=== PATIENT | male | born 1955 | race African-American/Black ===

== ENCOUNTER 2018-11-17 11:29 | Inpatient (IN) ==
[2018-11-17] MEDS ORDERED: cloNIDine 0.1 MG TABLET PO STA (13:12)
[2018-11-17] MEDS ORDERED: hydrALAZINE 20 MG/1 ML VIAL IV PRN (13:35)
[2018-11-17] MEDS ORDERED: DEXTROSE 50% 25 GM/50 ML SYRINGE IV PRN (16:01)
[2018-11-17] MEDS ORDERED: ONDANSETRON 4 MG/2 ML VIAL IV PRN (16:01)
[2018-11-17] MEDS ORDERED: hydroCHLOROthiazide 12.5 MG CAPSULE PO SCH (16:01)
[2018-11-17] MEDS ORDERED: GLUCAGON 1 MG VIAL IM PRN (16:01)
[2018-11-17] MEDS ORDERED: amLODIPine 10 MG TABLET PO SCH (16:01)
[2018-11-17] MEDS: BETAMETHASONE DIPR 0.05% CREAM 15 GM TUBE TOP SCH ×2 (16:16→20:54)
[2018-11-17] MEDS: CARVEDILOL 6.25 MG TABLET PO SCH ×2 (16:16→20:54)
[2018-11-17] MEDS: MOMETASONE 0.1% CREAM 15 GM TUBE TOP SCH ×2 (16:17→22:00)
[2018-11-17] MEDS: NICOTINE 14 MG/24 HR PATCH TRANSDERM SCH (16:17)
[2018-11-17] MEDS: TRIAMCINOLONE 0.1% CREAM 15 GM TUBE TOP SCH ×2 (16:17→20:54)
[2018-11-17] MEDS: PANTOPRAZOLE 40 MG TABLET PO SCH (16:18)
[2018-11-17] MEDS ORDERED: ZALEPLON 5 MG CAPSULE PO PRN ×2 (16:21→16:29)
[2018-11-17] MEDS: INSULIN REGULAR 100 UNIT/ML SUBCUT SCH ×2 (17:30→20:51)
[2018-11-17 18:30] LABS: Basophils # 0.1 10*3/uL (0.0-0.2); Basophils % 0.8 % (0.0-0.8); Eosinophils # 0.1 10*3/uL (0.0-0.87); Eosinophils % 0.5 % (0.00-10.9); Hematocrit 42.9 VOL% (42.0-52.0); Hemoglobin 14.1 GM/DL (14.0-18.0); Immature Granulocytes % 0.4 %; Immature Granulocytes Absolute 0.05 #; Lymphocytes # 2.6 10*3/uL (1.4-4.0); Lymphocytes % 20.3 % (21.2-54.2); Mean Corpuscular HGB Conc 32.9 GM/DL (32-36); Mean Corpuscular Hemoglobin 27 PG (27-34); Mean Corpuscular Volume 83.3 FL (87-102); Mean Platelet Volume 10.4 FL (9.6-12.0); Monocytes # 0.9 10*3/uL (0.11-0.8); Monocytes % 6.7 % (1.7-12.7); Neutrophils % 71.3 % (38.7-73.9); Platelet Count 318 T/CUMM (130-400); Red Blood Count 5.15 MC/CUMM (3.8-5.5); Red Cell Distribution Width 14.2 % (9.3-17.3); White Blood Count 12.6 T/CUMM (4-12)
[2018-11-17 18:48] LABS: Albumin 3.6 G/DL (3.4-5.0); Bilirubin,Total 0.6 MG/DL (0.2-1.0); Calcium 9.1 MG/DL (8.5-10.1); Osmolality,Calculated 281.3 MOS/KG (273-304); Potassium 3.2 MMOL/L (3.5-5.1); Total Protein 8.6 G/DL (6.4-8.3)
[2018-11-17] MEDS ORDERED: LOSARTAN 50 MG TABLET PO SCH ×2 (21:00)
[2018-11-17] MEDS ORDERED: cloNIDine 0.1 MG TABLET PO ONE (23:16)
[2018-11-17] MEDS ORDERED: LISINOPRIL 20 MG TABLET PO SCH (23:16)
[2018-11-18] MEDS ORDERED: METOPROLOL TARTRATE 5 MG/5 ML VIAL IV ONE (03:42)
[2018-11-18 05:08] LABS: Basophils # 0.1 10*3/uL (0.0-0.2); Basophils % 0.8 % (0.0-0.8); Eosinophils # 0.1 10*3/uL (0.0-0.87); Eosinophils % 0.9 % (0.00-10.9); Hematocrit 42.6 VOL% (42.0-52.0); Hemoglobin 14.1 GM/DL (14.0-18.0); Immature Granulocytes % 0.6 %; Immature Granulocytes Absolute 0.07 #; Lymphocytes # 2.5 10*3/uL (1.4-4.0); Lymphocytes % 20.6 % (21.2-54.2); Mean Corpuscular HGB Conc 33.1 GM/DL (32-36); Mean Corpuscular Hemoglobin 28 PG (27-34); Mean Platelet Volume 10.5 FL (9.6-12.0); Monocytes % 8.2 % (1.7-12.7); Neutrophils # 8.4 10*3/uL (1.4-7.4); Neutrophils % 68.9 % (38.7-73.9); Platelet Count 312 T/CUMM (130-400); Red Blood Count 5.13 MC/CUMM (3.8-5.5); Red Cell Distribution Width 14.1 % (9.3-17.3); White Blood Count 12.1 T/CUMM (4-12)
[2018-11-18 05:37] LABS: Risk Ratio 5.61; VLDL CHOLESTEROL 16.2 MG/DL
[2018-11-18] MEDS ORDERED: CARVEDILOL 12.5 MG TABLET PO ONE (06:36)
[2018-11-18] MEDS ORDERED: ALPRAZolam 0.25 MG TABLET PO ONE (08:39)
[2018-11-18] MEDS ORDERED: POTASSIUM CHLORIDE 20 MEQ TABLET PO ONE (08:44)
[2018-11-18] MEDS ORDERED: amLODIPine 10 MG TABLET PO SCH ×2 (09:00→13:45)
[2018-11-18] MEDS ORDERED: hydroCHLOROthiazide 25 MG TABLET PO SCH (09:00)
[2018-11-18] MEDS ORDERED: LOSARTAN 50 MG TABLET PO SCH (09:00)
[2018-11-18] MEDS: INSULIN REGULAR 100 UNIT/ML SUBCUT SCH ×4 (09:04→20:25)
[2018-11-18 09:23] LABS: Calcium 8.9 MG/DL (8.5-10.1); Osmolality,Calculated 284.1 MOS/KG (273-304); Potassium 3.1 MMOL/L (3.5-5.1)
[2018-11-18] MEDS: PANTOPRAZOLE 40 MG TABLET PO SCH (09:32)
[2018-11-18] MEDS ORDERED: cloNIDine 0.1 MG TABLET ONE (09:54)
[2018-11-18] MEDS ORDERED: fentaNYL 100 MCG/2 ML VIAL ONE (12:16)
[2018-11-18] MEDS ORDERED: PROPOFOL 200 MG/20 ML VIAL IV ONE (12:16)
[2018-11-18] MEDS ORDERED: SEVOFLURANE 1 UNIT/15 MINUTE INH ONE (12:16)
[2018-11-18] MEDS ORDERED: ROCURONIUM 100 MG/10 ML VIAL IV ONE (12:17)
[2018-11-18] MEDS ORDERED: ONDANSETRON 4 MG/2 ML VIAL ONE (12:17)
[2018-11-18] MEDS ORDERED: PHENYLEPHRINE 10 MG/1 ML VIAL IV ONE (12:17)
[2018-11-18] MEDS ORDERED: PHENYLEPHRINE 1 MG/10 ML SYRINGE IV ONE (12:17)
[2018-11-18] MEDS ORDERED: SUCCINYLCHOLINE 200 MG/10 ML VIAL ONE (12:17)
[2018-11-18] MEDS ORDERED: EPINEPHrine 1 MG/ML VIAL ONE (12:17)
[2018-11-18 12:42] LABS: ABG Base Excess -3.9 MMOL/L (-2.5-2.5); ABG HCO3 21.2 MMOL/L (20-26); ABG Oxygen Saturation 96.2 % (95-100)
[2018-11-18 12:45] LABS: ABG PH 7.164 (7.35-7.45)
[2018-11-18 12:46] LABS: ABG PCO2 77.2 MM HG (35-48)
[2018-11-18] MEDS ORDERED: HEPARIN/NACL 0.9% 2 UNITS/ML 500 ML IV ONE (13:05)
[2018-11-18 13:11] LABS: ABG Base Excess -2.2 MMOL/L (-2.5-2.5); ABG HCO3 22.6 MMOL/L (20-26); ABG Oxygen Saturation 96.6 % (95-100); ABG PCO2 57.6 MM HG (35-48); ABG PH 7.268 (7.35-7.45)
[2018-11-18] MEDS ORDERED: FUROSEMIDE 20 MG/2 ML VIAL IV ONE ×3 (13:21→16:51)
[2018-11-18] MEDS: PROPOFOL 1,000 MG/100 ML BOTTLE IV SCH ×2 (13:32→15:15)
[2018-11-18 13:49] LABS: Basophils # 0.1 10*3/uL (0.0-0.2); Basophils % 0.4 % (0.0-0.8); Eosinophils # 0.1 10*3/uL (0.0-0.87); Eosinophils % 0.2 % (0.00-10.9); Hematocrit 41.4 VOL% (42.0-52.0); Hemoglobin 13.6 GM/DL (14.0-18.0); Immature Granulocytes % 0.7 %; Immature Granulocytes Absolute 0.16 #; Lymphocytes # 0.8 10*3/uL (1.4-4.0); Lymphocytes % 3.7 % (21.2-54.2); Mean Corpuscular HGB Conc 32.9 GM/DL (32-36); Mean Corpuscular Hemoglobin 28 PG (27-34); Mean Corpuscular Volume 84.5 FL (87-102); Mean Platelet Volume 10.4 FL (9.6-12.0); Monocytes # 0.3 10*3/uL (0.11-0.8); Monocytes % 1.5 % (1.7-12.7); Neutrophils # 19.9 10*3/uL (1.4-7.4); Neutrophils % 93.5 % (38.7-73.9); Platelet Count 299 T/CUMM (130-400); Red Cell Distribution Width 14.3 % (9.3-17.3); White Blood Count 21.3 T/CUMM (4-12)
[2018-11-18 14:03] LABS: Calcium 8.2 MG/DL (8.5-10.1); Osmolality,Calculated 289.1 MOS/KG (273-304); Potassium 3.6 MMOL/L (3.5-5.1)
[2018-11-18 14:05] LABS: INR 1.1; PT Patient Result 11.4 SECS; Partial Thromboplastin Time 30.6 SECS (0-40)
[2018-11-18 15:17] LABS: Band Neutrophils 1 % (0-10); Hypochromasia Slight; Lymphocytes 3 % (20-55); Platelet Estimate Normal; Segmented Neutrophils 96 % (50-85)
[2018-11-18 15:18] LABS: Microcytosis Slight; Total Cells Counted 100
[2018-11-18] MEDS ORDERED: OXYMETAZOLINE 0.05% NASAL SPRAY 15 ML BOTTLE BOTH NARES PRN (15:47)
[2018-11-18] MEDS: LEVOFLOXACIN INJ 750 MG in PREMIX 1 EACH IV SCH (15:55)
[2018-11-18] MEDS: PANTOPRAZOLE 40 MG VIAL IV SCH (15:55)
[2018-11-18] MEDS: CLINDAMYCIN INJ 600 MG in PREMIX 1 EACH IV SCH (16:59)
[2018-11-18] MEDS ORDERED: SODIUM CHLORIDE 0.45% 1,000 ML IV SCH (17:30)
[2018-11-18] MEDS: BETAMETHASONE DIPR 0.05% CREAM 15 GM TUBE TOP SCH ×2 (17:34→21:41)
[2018-11-18] MEDS: TRIAMCINOLONE 0.1% CREAM 15 GM TUBE TOP SCH ×2 (17:35→21:42)
[2018-11-18] MEDS: MOMETASONE 0.1% CREAM 15 GM TUBE TOP SCH ×2 (17:35→21:42)
[2018-11-18] MEDS: NICOTINE 14 MG/24 HR PATCH TRANSDERM SCH (17:35)
[2018-11-18] MEDS: SODIUM CHLORIDE 0.9% 1,000 ML IV SCH ×2 (17:38→20:21)
[2018-11-18 18:03] LABS: ABG Base Excess -0.8 MMOL/L (-2.5-2.5); ABG HCO3 23.7 MMOL/L (20-26); ABG Oxygen Saturation 98.7 % (95-100); ABG PCO2 42.5 MM HG (35-48); ABG TCO2 21.4 MMOL/L (23-27)
[2018-11-18] MEDS ORDERED: SODIUM CHLORIDE 0.9% 500 ML IV ONE ×2 (18:11→18:18)
[2018-11-18] MEDS ORDERED: NOREPINEPHRINE 8 MG in SODIUM CHLORIDE 0.9% 242 ML IV PRN (18:19)
[2018-11-18] MEDS: SODIUM CHLORIDE 0.65% NASAL SPRAY 45 ML BOTTLE BOTH NARES SCH ×2 (18:40→21:42)
[2018-11-18] MEDS: fentaNYL INJ 1,250 MCG in SODIUM CHLORIDE 0.9% 225 ML IV PRN (18:45)
[2018-11-18 20:11] LABS: Basophils # 0.1 10*3/uL (0.0-0.2); Basophils % 0.2 % (0.0-0.8); Hematocrit 39.2 VOL% (42.0-52.0); Hemoglobin 12.8 GM/DL (14.0-18.0); Immature Granulocytes % 0.7 %; Immature Granulocytes Absolute 0.18 #; Lymphocytes # 1.1 10*3/uL (1.4-4.0); Lymphocytes % 4.2 % (21.2-54.2); Mean Corpuscular HGB Conc 32.7 GM/DL (32-36); Mean Corpuscular Hemoglobin 28 PG (27-34); Mean Corpuscular Volume 84.7 FL (87-102); Mean Platelet Volume 10.2 FL (9.6-12.0); Monocytes # 0.8 10*3/uL (0.11-0.8); Monocytes % 3.3 % (1.7-12.7); Neutrophils % 91.6 % (38.7-73.9); Platelet Count 284 T/CUMM (130-400); Red Blood Count 4.63 MC/CUMM (3.8-5.5); Red Cell Distribution Width 14.4 % (9.3-17.3); White Blood Count 25.1 T/CUMM (4-12)
[2018-11-18] MEDS: ALBUTEROL/IPRATROPIUM 3 ML NEB RESP TX SCH ×2 (20:15→23:11)
[2018-11-18 20:25] LABS: Osmolality,Calculated 286.3 MOS/KG (273-304); Potassium 3.6 MMOL/L (3.5-5.1)
[2018-11-18 20:34] LABS: Microcytosis 1+; Platelet Estimate Normal
[2018-11-18] MEDS ORDERED: CARVEDILOL 6.25 MG TABLET PO SCH (21:00)
[2018-11-18] MEDS ORDERED: CARVEDILOL 12.5 MG TABLET PO SCH (21:00)
[2018-11-19] MEDS: CLINDAMYCIN INJ 600 MG in PREMIX 1 EACH IV SCH ×3 (00:57→16:59)
[2018-11-19] MEDS: fentaNYL INJ 1,250 MCG in SODIUM CHLORIDE 0.9% 225 ML IV PRN ×5 (01:08→20:24)
[2018-11-19] MEDS: ALBUTEROL/IPRATROPIUM 3 ML NEB RESP TX SCH ×5 (03:15→20:07)
[2018-11-19 03:46] LABS: Basophils % 0.2 % (0.0-0.8); Hematocrit 37.1 VOL% (42.0-52.0); Hemoglobin 12.1 GM/DL (14.0-18.0); Immature Granulocytes % 0.7 %; Immature Granulocytes Absolute 0.16 #; Lymphocytes # 1.7 10*3/uL (1.4-4.0); Lymphocytes % 7.4 % (21.2-54.2); Mean Corpuscular HGB Conc 32.6 GM/DL (32-36); Mean Corpuscular Hemoglobin 28 PG (27-34); Mean Corpuscular Volume 84.7 FL (87-102); Monocytes # 1.3 10*3/uL (0.11-0.8); Monocytes % 5.6 % (1.7-12.7); Neutrophils # 19.4 10*3/uL (1.4-7.4); Neutrophils % 86.1 % (38.7-73.9); Platelet Count 276 T/CUMM (130-400); Red Blood Count 4.38 MC/CUMM (3.8-5.5); Red Cell Distribution Width 14.2 % (9.3-17.3); White Blood Count 22.5 T/CUMM (4-12)
[2018-11-19 03:54] LABS: ABG Base Excess -0.3 MMOL/L (-2.5-2.5); ABG HCO3 24.4 MMOL/L (20-26); ABG Oxygen Saturation 96.2 % (95-100); ABG PCO2 40.3 MM HG (35-48); ABG PO2 91.4 MM HG (80-95); ABG TCO2 25.6 MMOL/L (23-27)
[2018-11-19 04:33] LABS: Lymphocytes 11 % (20-55); Platelet Estimate Normal; Segmented Neutrophils 86 % (50-85); Total Cells Counted 100
[2018-11-19 04:34] LABS: Polychromasia Few
[2018-11-19] MEDS: SODIUM CHLORIDE 0.9% 1,000 ML IV SCH ×3 (05:21→17:52)
[2018-11-19 06:05] LABS: Calcium 7.7 MG/DL (8.5-10.1); Osmolality,Calculated 293.8 MOS/KG (273-304); Potassium 3.4 MMOL/L (3.5-5.1)
[2018-11-19] MEDS: INSULIN REGULAR 100 UNIT/ML SUBCUT SCH ×4 (07:38→21:57)
[2018-11-19] MEDS: NICOTINE 14 MG/24 HR PATCH TRANSDERM SCH (08:41)
[2018-11-19] MEDS: PANTOPRAZOLE 40 MG VIAL IV SCH (08:41)
[2018-11-19] MEDS: BETAMETHASONE DIPR 0.05% CREAM 15 GM TUBE TOP SCH ×2 (11:21→22:11)
[2018-11-19] MEDS: TRIAMCINOLONE 0.1% CREAM 15 GM TUBE TOP SCH ×2 (11:21→22:12)
[2018-11-19] MEDS: MOMETASONE 0.1% CREAM 15 GM TUBE TOP SCH ×2 (11:21→22:11)
[2018-11-19] MEDS: SODIUM CHLORIDE 0.65% NASAL SPRAY 45 ML BOTTLE BOTH NARES SCH ×4 (11:26→20:27)
[2018-11-19] MEDS: PROPOFOL 1,000 MG/100 ML BOTTLE IV SCH ×2 (12:48→20:27)
[2018-11-19] MEDS: LEVOFLOXACIN INJ 750 MG in PREMIX 1 EACH IV SCH (15:08)
[2018-11-19] MEDS ORDERED: NITROGLYCERIN SL 0.4 MG TABLET SL ONE (17:19)
[2018-11-19] MEDS ORDERED: NITROGLYCERIN SL 0.4 MG TABLET SL PRN (17:22)
[2018-11-19 17:56] LABS: Albumin 3.4 G/DL (3.4-5.0); Bilirubin,Total 0.8 MG/DL (0.2-1.0); Calcium 7.9 MG/DL (8.5-10.1); Osmolality,Calculated 297.6 MOS/KG (273-304); Potassium 3.6 MMOL/L (3.5-5.1); Total Protein 7.4 G/DL (6.4-8.3)
[2018-11-20] MEDS: CLINDAMYCIN INJ 600 MG in PREMIX 1 EACH IV SCH ×3 (00:11→16:54)
[2018-11-20] MEDS: SODIUM CHLORIDE 0.9% 1,000 ML IV SCH ×4 (00:15→21:05)
[2018-11-20] MEDS: fentaNYL INJ 1,250 MCG in SODIUM CHLORIDE 0.9% 225 ML IV PRN ×5 (00:21→19:14)
[2018-11-20] MEDS: ALBUTEROL/IPRATROPIUM 3 ML NEB RESP TX SCH ×7 (00:26→23:45)
[2018-11-20 03:00] LABS: Basophils # 0.1 10*3/uL (0.0-0.2); Basophils % 0.6 % (0.0-0.8); Eosinophils % 0.1 % (0.00-10.9); Hematocrit 36.9 VOL% (42.0-52.0); Hemoglobin 12.1 GM/DL (14.0-18.0); Immature Granulocytes % 0.7 %; Immature Granulocytes Absolute 0.12 #; Lymphocytes # 1.9 10*3/uL (1.4-4.0); Lymphocytes % 10.2 % (21.2-54.2); Mean Corpuscular HGB Conc 32.8 GM/DL (32-36); Mean Corpuscular Hemoglobin 28 PG (27-34); Mean Corpuscular Volume 84.4 FL (87-102); Mean Platelet Volume 10.2 FL (9.6-12.0); Monocytes # 1.5 10*3/uL (0.11-0.8); Monocytes % 8.1 % (1.7-12.7); Neutrophils # 14.5 10*3/uL (1.4-7.4); Neutrophils % 80.3 % (38.7-73.9); Platelet Count 267 T/CUMM (130-400); Red Blood Count 4.37 MC/CUMM (3.8-5.5); Red Cell Distribution Width 14.2 % (9.3-17.3); White Blood Count 18.1 T/CUMM (4-12)
[2018-11-20 06:30] LABS: ABG HCO3 26.1 MMOL/L (20-26); ABG Oxygen Saturation 94.4 % (95-100); ABG PCO2 38.1 MM HG (35-48); ABG PH 7.443 (7.35-7.45); ABG PO2 70.3 MM HG (80-95); ABG TCO2 22.9 MMOL/L (23-27)
[2018-11-20] MEDS: INSULIN REGULAR 100 UNIT/ML SUBCUT SCH ×4 (07:52→21:44)
[2018-11-20] MEDS: NICOTINE 14 MG/24 HR PATCH TRANSDERM SCH (08:47)
[2018-11-20] MEDS: PANTOPRAZOLE 40 MG VIAL IV SCH (08:47)
[2018-11-20] MEDS: SODIUM CHLORIDE 0.65% NASAL SPRAY 45 ML BOTTLE BOTH NARES SCH ×4 (08:48→21:58)
[2018-11-20] MEDS: TRIAMCINOLONE 0.1% CREAM 15 GM TUBE TOP SCH ×2 (08:48→21:04)
[2018-11-20] MEDS: MOMETASONE 0.1% CREAM 15 GM TUBE TOP SCH ×2 (08:48→21:04)
[2018-11-20] MEDS: BETAMETHASONE DIPR 0.05% CREAM 15 GM TUBE TOP SCH ×2 (08:48→21:05)
[2018-11-20] MEDS: methylPREDNISolone SOD SUC 40 MG/1 ML VIAL IV SCH ×2 (10:53→18:02)
[2018-11-20] MEDS: LORazepam 1 MG TABLET PO PRN ×2 (12:40→16:53)
[2018-11-20] MEDS: PROPOFOL 1,000 MG/100 ML BOTTLE IV SCH ×2 (13:12→19:12)
[2018-11-20] MEDS: LEVOFLOXACIN INJ 750 MG in PREMIX 1 EACH IV SCH (14:39)
[2018-11-20] MEDS: METOPROLOL TARTRATE 100 MG TABLET PO SCH ×2 (17:24→21:58)
[2018-11-20 17:52] LABS: Hematocrit 37.2 VOL% (42.0-52.0); Hemoglobin 12.1 GM/DL (14.0-18.0)
[2018-11-21] MEDS: fentaNYL INJ 1,250 MCG in SODIUM CHLORIDE 0.9% 225 ML IV PRN ×4 (00:12→16:28)
[2018-11-21] MEDS: methylPREDNISolone SOD SUC 40 MG/1 ML VIAL IV SCH ×3 (01:40→17:41)
[2018-11-21] MEDS: CLINDAMYCIN INJ 600 MG in PREMIX 1 EACH IV SCH ×3 (01:41→17:14)
[2018-11-21] MEDS: ALBUTEROL/IPRATROPIUM 3 ML NEB RESP TX SCH ×6 (03:30→23:58)
[2018-11-21 04:49] LABS: Basophils # 0.1 10*3/uL (0.0-0.2); Basophils % 0.4 % (0.0-0.8); Eosinophils % 0.1 % (0.00-10.9); Hematocrit 36.6 VOL% (42.0-52.0); Hemoglobin 11.9 GM/DL (14.0-18.0); Immature Granulocytes % 0.6 %; Lymphocytes # 1.1 10*3/uL (1.4-4.0); Lymphocytes % 6.3 % (21.2-54.2); Mean Corpuscular HGB Conc 32.5 GM/DL (32-36); Mean Corpuscular Hemoglobin 28 PG (27-34); Mean Corpuscular Volume 85.3 FL (87-102); Mean Platelet Volume 10.8 FL (9.6-12.0); Monocytes # 0.7 10*3/uL (0.11-0.8); Monocytes % 4.4 % (1.7-12.7); Neutrophils # 14.7 10*3/uL (1.4-7.4); Neutrophils % 88.2 % (38.7-73.9); Platelet Count 260 T/CUMM (130-400); Red Blood Count 4.29 MC/CUMM (3.8-5.5); Red Cell Distribution Width 14.4 % (9.3-17.3); White Blood Count 16.6 T/CUMM (4-12)
[2018-11-21] MEDS: SODIUM CHLORIDE 0.9% 1,000 ML IV SCH ×3 (05:57→22:37)
[2018-11-21] MEDS: PROPOFOL 1,000 MG/100 ML BOTTLE IV SCH ×3 (05:58→18:41)
[2018-11-21 08:38] LABS: Apearance,Urine CLEAR (Clear); Bacteria,Urine Occasional /HPF (Few); Bilirubin,Urine Negative (Negative); Blood, Urine Moderate mg/dL (Negative); Glucose,Urine (UA) Negative (Negative); Ketones,Urine Negative (Negative); Mucus,Urine Occasional /LPF (Occasional); Nitrite,Urine Negative (Negative); Protein,Urine Negative; RBC,Urine 19 /HPF (0-4); Squamous Epithelial Cell,Urine Occasional /HPF (0-10); Urine Color Yellow (Yellow); Urine Specific Gravity 1.012 (1.001-1.035); Urine Urobilinogen < 2.0 EU/DL (0.2-1.0); WBC,Urine 3 /HPF (0-6)
[2018-11-21 08:55] LABS: ABG Base Excess 0.8 MMOL/L (-2.5-2.5); ABG Oxygen Saturation 96.5 % (95-100); ABG PCO2 52.7 MM HG (35-48); ABG PH 7.333 (7.35-7.45); ABG PO2 91.5 MM HG (80-95)
[2018-11-21] MEDS ORDERED: DEXTROSE 50% 25 GM/50 ML SYRINGE IV PRN (09:22)
[2018-11-21] MEDS: INSULIN REGULAR 100 UNIT/ML SUBCUT SCH ×3 (09:26→17:40)
[2018-11-21] MEDS: PANTOPRAZOLE 40 MG VIAL IV SCH (09:30)
[2018-11-21] MEDS: NICOTINE 14 MG/24 HR PATCH TRANSDERM SCH (09:30)
[2018-11-21] MEDS: SODIUM CHLORIDE 0.65% NASAL SPRAY 45 ML BOTTLE BOTH NARES SCH ×4 (09:30→21:21)
[2018-11-21] MEDS: METOPROLOL TARTRATE 100 MG TABLET PO SCH ×2 (16:16→20:46)
[2018-11-21] MEDS: LEVOFLOXACIN INJ 750 MG in PREMIX 1 EACH IV SCH (17:50)
[2018-11-21] MEDS: BETAMETHASONE DIPR 0.05% CREAM 15 GM TUBE TOP SCH ×2 (19:46→20:46)
[2018-11-21] MEDS ORDERED: MOMETASONE 0.1% CREAM 15 GM TUBE TOP SCH (21:00)
[2018-11-21] MEDS ORDERED: TRIAMCINOLONE 0.1% CREAM 15 GM TUBE TOP SCH (21:00)
[2018-11-22] MEDS: SODIUM CHLORIDE 0.9% 1,000 ML IV SCH ×2 (00:03→11:01)
[2018-11-22] MEDS: fentaNYL INJ 1,250 MCG in SODIUM CHLORIDE 0.9% 225 ML IV PRN ×3 (00:10→19:51)
[2018-11-22] MEDS: PROPOFOL 1,000 MG/100 ML BOTTLE IV SCH ×5 (01:10→23:45)
[2018-11-22] MEDS: methylPREDNISolone SOD SUC 40 MG/1 ML VIAL IV SCH ×3 (01:48→18:47)
[2018-11-22] MEDS: INSULIN REGULAR 100 UNIT/ML SUBCUT SCH ×4 (01:48→18:45)
[2018-11-22] MEDS: CLINDAMYCIN INJ 600 MG in PREMIX 1 EACH IV SCH ×3 (01:48→17:00)
[2018-11-22] MEDS: ALBUTEROL/IPRATROPIUM 3 ML NEB RESP TX SCH ×6 (03:57→23:09)
[2018-11-22 04:56] LABS: ABG Base Excess 2.2 MMOL/L (-2.5-2.5); ABG HCO3 26.4 MMOL/L (20-26); ABG Oxygen Saturation 98.5 % (95-100); ABG PCO2 46.4 MM HG (35-48); ABG PH 7.385 (7.35-7.45); ABG TCO2 24.8 MMOL/L (23-27)
[2018-11-22 05:40] LABS: Prealbumin 11.9 MG/DL (20-40)
[2018-11-22] MEDS: NICOTINE 14 MG/24 HR PATCH TRANSDERM SCH (10:38)
[2018-11-22] MEDS: METOPROLOL TARTRATE 100 MG TABLET PO SCH ×2 (10:38→21:51)
[2018-11-22] MEDS: BETAMETHASONE DIPR 0.05% CREAM 15 GM TUBE TOP SCH ×2 (10:40→21:51)
[2018-11-22] MEDS: PANTOPRAZOLE 40 MG VIAL IV SCH (10:45)
[2018-11-22] MEDS: SODIUM CHLORIDE 0.65% NASAL SPRAY 45 ML BOTTLE BOTH NARES SCH ×4 (10:56→21:51)
[2018-11-22] MEDS: LEVOFLOXACIN INJ 750 MG in PREMIX 1 EACH IV SCH (15:36)
[2018-11-23] MEDS: INSULIN REGULAR 100 UNIT/ML SUBCUT SCH ×4 (02:04→17:53)
[2018-11-23] MEDS: CLINDAMYCIN INJ 600 MG in PREMIX 1 EACH IV SCH ×3 (02:05→17:53)
[2018-11-23] MEDS: SODIUM CHLORIDE 0.9% 1,000 ML IV SCH ×2 (02:05→14:46)
[2018-11-23] MEDS: methylPREDNISolone SOD SUC 40 MG/1 ML VIAL IV SCH ×3 (02:06→17:53)
[2018-11-23] MEDS: ALBUTEROL/IPRATROPIUM 3 ML NEB RESP TX SCH ×6 (04:25→23:59)
[2018-11-23 05:52] LABS: ABG Base Excess 4.5 MMOL/L (-2.5-2.5); ABG HCO3 28.5 MMOL/L (20-26); ABG Oxygen Saturation 98.2 % (95-100); ABG PCO2 47.1 MM HG (35-48); ABG PH 7.411 (7.35-7.45)
[2018-11-23 06:11] LABS: Basophils % 0.2 % (0.0-0.8); Eosinophils % 0.1 % (0.00-10.9); Hematocrit 35.4 VOL% (42.0-52.0); Hemoglobin 11.4 GM/DL (14.0-18.0); Immature Granulocytes % 0.9 %; Lymphocytes # 1.1 10*3/uL (1.4-4.0); Lymphocytes % 9.4 % (21.2-54.2); Mean Corpuscular HGB Conc 32.2 GM/DL (32-36); Mean Corpuscular Hemoglobin 28 PG (27-34); Mean Corpuscular Volume 86.6 FL (87-102); Mean Platelet Volume 10.7 FL (9.6-12.0); Monocytes # 0.7 10*3/uL (0.11-0.8); Neutrophils # 9.8 10*3/uL (1.4-7.4); Neutrophils % 83.4 % (38.7-73.9); Platelet Count 286 T/CUMM (130-400); Red Blood Count 4.09 MC/CUMM (3.8-5.5); Red Cell Distribution Width 14.1 % (9.3-17.3); White Blood Count 11.7 T/CUMM (4-12)
[2018-11-23] MEDS: fentaNYL INJ 1,250 MCG in SODIUM CHLORIDE 0.9% 225 ML IV PRN ×3 (06:13→19:10)
[2018-11-23 06:26] LABS: Albumin 2.6 G/DL (3.4-5.0); Bilirubin,Total 0.4 MG/DL (0.2-1.0); Calcium 8.3 MG/DL (8.5-10.1); Osmolality,Calculated 308.6 MOS/KG (273-304); Potassium 3.6 MMOL/L (3.5-5.1)
[2018-11-23] MEDS: PROPOFOL 1,000 MG/100 ML BOTTLE IV SCH ×5 (07:08→22:00)
[2018-11-23] MEDS: PANTOPRAZOLE 40 MG VIAL IV SCH (09:16)
[2018-11-23] MEDS: NICOTINE 14 MG/24 HR PATCH TRANSDERM SCH (09:17)
[2018-11-23] MEDS: METOPROLOL TARTRATE 100 MG TABLET PO SCH (09:17)
[2018-11-23] MEDS: BISACODYL 5 MG TABLET PO PRN (09:21)
[2018-11-23] MEDS: LORazepam 1 MG TABLET PO PRN (10:15)
[2018-11-23] MEDS: SODIUM CHLORIDE 0.65% NASAL SPRAY 45 ML BOTTLE BOTH NARES SCH ×3 (10:18→17:54)
[2018-11-23] MEDS: BETAMETHASONE DIPR 0.05% CREAM 15 GM TUBE TOP SCH (10:20)
[2018-11-23] MEDS: DEXTROSE 5% 1,000 ML IV SCH (14:43)
[2018-11-23] MEDS: LEVOFLOXACIN INJ 750 MG in PREMIX 1 EACH IV SCH (15:00)
[2018-11-24] MEDS: BETAMETHASONE DIPR 0.05% CREAM 15 GM TUBE TOP SCH ×2 (01:20→10:14)
[2018-11-24] MEDS: METOPROLOL TARTRATE 100 MG TABLET PO SCH ×3 (01:20→21:40)
[2018-11-24] MEDS: fentaNYL INJ 1,250 MCG in SODIUM CHLORIDE 0.9% 225 ML IV PRN ×3 (01:57→13:52)
[2018-11-24] MEDS: INSULIN REGULAR 100 UNIT/ML SUBCUT SCH ×4 (01:58→18:18)
[2018-11-24] MEDS: SODIUM CHLORIDE 0.65% NASAL SPRAY 45 ML BOTTLE BOTH NARES SCH ×5 (01:59→21:40)
[2018-11-24] MEDS: methylPREDNISolone SOD SUC 40 MG/1 ML VIAL IV SCH ×3 (02:39→18:18)
[2018-11-24] MEDS: CLINDAMYCIN INJ 600 MG in PREMIX 1 EACH IV SCH ×3 (02:39→17:21)
[2018-11-24] MEDS: DEXTROSE 5% 1,000 ML IV SCH ×3 (03:40→19:40)
[2018-11-24] MEDS: SODIUM CHLORIDE 0.9% 1,000 ML IV SCH (03:51)
[2018-11-24] MEDS: ALBUTEROL/IPRATROPIUM 3 ML NEB RESP TX SCH ×6 (04:02→23:52)
[2018-11-24 04:36] LABS: ABG Base Excess 6.1 MMOL/L (-2.5-2.5); ABG HCO3 29.9 MMOL/L (20-26); ABG Oxygen Saturation 98.9 % (95-100); ABG PCO2 43.8 MM HG (35-48); ABG PH 7.454 (7.35-7.45); ABG TCO2 27.2 MMOL/L (23-27)
[2018-11-24 04:39] LABS: Basophils % 0.3 % (0.0-0.8); Eosinophils # 0.1 10*3/uL (0.0-0.87); Eosinophils % 0.5 % (0.00-10.9); Hemoglobin 11.3 GM/DL (14.0-18.0); Immature Granulocytes % 0.8 %; Lymphocytes # 1.7 10*3/uL (1.4-4.0); Lymphocytes % 14.3 % (21.2-54.2); Mean Corpuscular HGB Conc 32.3 GM/DL (32-36); Mean Corpuscular Hemoglobin 28 PG (27-34); Mean Platelet Volume 10.4 FL (9.6-12.0); Monocytes # 0.8 10*3/uL (0.11-0.8); Monocytes % 7.1 % (1.7-12.7); Neutrophils # 9.1 10*3/uL (1.4-7.4); Platelet Count 288 T/CUMM (130-400); Red Blood Count 4.07 MC/CUMM (3.8-5.5); Red Cell Distribution Width 14.2 % (9.3-17.3); White Blood Count 11.8 T/CUMM (4-12)
[2018-11-24] MEDS ORDERED: HEPARIN/NACL 0.9% 2 UNITS/ML 500 ML IV ONE (04:48)
[2018-11-24 04:51] LABS: PT Patient Result 10.9 SECS
[2018-11-24 04:55] LABS: Osmolality,Calculated 305.7 MOS/KG (273-304); Potassium 3.6 MMOL/L (3.5-5.1)
[2018-11-24 04:58] LABS: Prealbumin 16.9 MG/DL (20-40)
[2018-11-24] MEDS: PANTOPRAZOLE 40 MG VIAL IV SCH (09:49)
[2018-11-24] MEDS: NICOTINE 14 MG/24 HR PATCH TRANSDERM SCH (09:49)
[2018-11-24] MEDS: PROPOFOL 1,000 MG/100 ML BOTTLE IV SCH ×3 (10:31→15:42)
[2018-11-24] MEDS: LEVOFLOXACIN INJ 750 MG in PREMIX 1 EACH IV SCH (14:24)
[2018-11-25] MEDS: BETAMETHASONE DIPR 0.05% CREAM 15 GM TUBE TOP SCH ×3 (01:25→20:46)
[2018-11-25] MEDS: methylPREDNISolone SOD SUC 40 MG/1 ML VIAL IV SCH ×3 (01:28→18:29)
[2018-11-25] MEDS: INSULIN REGULAR 100 UNIT/ML SUBCUT SCH ×4 (01:29→18:30)
[2018-11-25] MEDS: CLINDAMYCIN INJ 600 MG in PREMIX 1 EACH IV SCH ×3 (01:29→18:27)
[2018-11-25] MEDS: PROPOFOL 1,000 MG/100 ML BOTTLE IV SCH ×4 (01:30→18:45)
[2018-11-25] MEDS: fentaNYL INJ 1,250 MCG in SODIUM CHLORIDE 0.9% 225 ML IV PRN ×5 (01:32→21:04)
[2018-11-25 03:05] LABS: ABG Base Excess 7.4 MMOL/L (-2.5-2.5); ABG HCO3 31.2 MMOL/L (20-26); ABG PCO2 46.2 MM HG (35-48); ABG PH 7.454 (7.35-7.45); ABG TCO2 28.9 MMOL/L (23-27); Allen Test Positive; Pt O2 Delivery Device Ventilator
[2018-11-25] MEDS: ALBUTEROL/IPRATROPIUM 3 ML NEB RESP TX SCH ×6 (03:05→23:48)
[2018-11-25 06:09] LABS: Calcium 8.1 MG/DL (8.5-10.1); Osmolality,Calculated 295.4 MOS/KG (273-304); Potassium 3.2 MMOL/L (3.5-5.1)
[2018-11-25] MEDS: DEXTROSE 5% 1,000 ML IV SCH ×3 (08:01→22:38)
[2018-11-25] MEDS: BISACODYL 5 MG TABLET PO PRN (09:32)
[2018-11-25] MEDS: METOPROLOL TARTRATE 100 MG TABLET PO SCH ×2 (09:32→20:45)
[2018-11-25] MEDS: NICOTINE 14 MG/24 HR PATCH TRANSDERM SCH (09:33)
[2018-11-25] MEDS: PANTOPRAZOLE 40 MG VIAL IV SCH (09:36)
[2018-11-25] MEDS: SODIUM CHLORIDE 0.65% NASAL SPRAY 45 ML BOTTLE BOTH NARES SCH ×4 (09:46→20:51)
[2018-11-25] MEDS ORDERED: SODIUM PHOSPHATE ENEMA 133 ML BOTTLE RECTAL ONE (10:31)
[2018-11-25] MEDS ORDERED: SODIUM PHOSPHATE ENEMA 133 ML BOTTLE RECTAL PRN (10:31)
[2018-11-25] MEDS: amLODIPine 5 MG TABLET PO SCH (13:19)
[2018-11-25] MEDS: POTASSIUM CHLORIDE 20 MEQ TABLET PO PRN ×4 (13:21→18:31)
[2018-11-25] MEDS: LEVOFLOXACIN INJ 750 MG in PREMIX 1 EACH IV SCH (16:38)
[2018-11-26] MEDS: INSULIN REGULAR 100 UNIT/ML SUBCUT SCH ×4 (00:10→17:42)
[2018-11-26] MEDS: CLINDAMYCIN INJ 600 MG in PREMIX 1 EACH IV SCH ×3 (01:20→17:50)
[2018-11-26] MEDS: methylPREDNISolone SOD SUC 40 MG/1 ML VIAL IV SCH ×3 (01:20→17:50)
[2018-11-26] MEDS: PROPOFOL 1,000 MG/100 ML BOTTLE IV SCH ×3 (03:39→23:37)
[2018-11-26] MEDS: ALBUTEROL/IPRATROPIUM 3 ML NEB RESP TX SCH ×6 (03:43→23:19)
[2018-11-26] MEDS: fentaNYL INJ 1,250 MCG in SODIUM CHLORIDE 0.9% 225 ML IV PRN ×4 (03:52→20:32)
[2018-11-26 04:11] LABS: ABG Base Excess 5.8 MMOL/L (-2.5-2.5); ABG HCO3 29.7 MMOL/L (20-26); ABG Oxygen Saturation 97.4 % (95-100); ABG PH 7.415 (7.35-7.45); ABG PO2 99.1 MM HG (80-95); Allen Test Positive; Pt O2 Delivery Device Ventilator
[2018-11-26 05:03] LABS: Basophils % 0.3 % (0.0-0.8); Eosinophils # 0.1 10*3/uL (0.0-0.87); Eosinophils % 0.6 % (0.00-10.9); Hematocrit 32.7 VOL% (42.0-52.0); Hemoglobin 10.8 GM/DL (14.0-18.0); Immature Granulocytes % 1.2 %; Immature Granulocytes Absolute 0.14 #; Lymphocytes # 0.9 10*3/uL (1.4-4.0); Lymphocytes % 7.8 % (21.2-54.2); Mean Corpuscular Hemoglobin 28 PG (27-34); Mean Corpuscular Volume 85.8 FL (87-102); Mean Platelet Volume 11.1 FL (9.6-12.0); Monocytes # 0.5 10*3/uL (0.11-0.8); Monocytes % 3.8 % (1.7-12.7); Neutrophils # 10.4 10*3/uL (1.4-7.4); Neutrophils % 86.3 % (38.7-73.9); Platelet Count 213 T/CUMM (130-400); Red Blood Count 3.81 MC/CUMM (3.8-5.5); Red Cell Distribution Width 13.8 % (9.3-17.3)
[2018-11-26 05:14] LABS: Calcium 7.8 MG/DL (8.5-10.1); Potassium 3.3 MMOL/L (3.5-5.1)
[2018-11-26] MEDS: POTASSIUM CHLORIDE 20 MEQ/15 ML UDCUP PO PRN ×3 (06:01→11:37)
[2018-11-26] MEDS: PANTOPRAZOLE 40 MG VIAL IV SCH (08:41)
[2018-11-26] MEDS: NICOTINE 14 MG/24 HR PATCH TRANSDERM SCH (08:42)
[2018-11-26] MEDS: amLODIPine 5 MG TABLET PO SCH (08:43)
[2018-11-26] MEDS: BETAMETHASONE DIPR 0.05% CREAM 15 GM TUBE TOP SCH ×2 (08:43→20:11)
[2018-11-26] MEDS: SODIUM CHLORIDE 0.65% NASAL SPRAY 45 ML BOTTLE BOTH NARES SCH ×4 (08:44→20:11)
[2018-11-26] MEDS: METOPROLOL TARTRATE 100 MG TABLET PO SCH ×2 (08:44→20:11)
[2018-11-26] MEDS: LEVOFLOXACIN INJ 750 MG in PREMIX 1 EACH IV SCH (13:00)
[2018-11-26] MEDS: DEXTROSE 5% 1,000 ML IV SCH (13:21)
[2018-11-27] MEDS: methylPREDNISolone SOD SUC 40 MG/1 ML VIAL IV SCH ×3 (01:10→18:10)
[2018-11-27] MEDS: INSULIN REGULAR 100 UNIT/ML SUBCUT SCH ×4 (01:10→18:10)
[2018-11-27] MEDS: CLINDAMYCIN INJ 600 MG in PREMIX 1 EACH IV SCH ×3 (01:10→18:09)
[2018-11-27] MEDS: DEXTROSE 5% 1,000 ML IV SCH ×3 (01:56→22:47)
[2018-11-27] MEDS: fentaNYL INJ 1,250 MCG in SODIUM CHLORIDE 0.9% 225 ML IV PRN ×3 (02:35→20:40)
[2018-11-27] MEDS: ALBUTEROL/IPRATROPIUM 3 ML NEB RESP TX SCH ×6 (03:15→23:11)
[2018-11-27 05:12] LABS: Basophils % 0.2 % (0.0-0.8); Eosinophils % 0.2 % (0.00-10.9); Hematocrit 31.6 VOL% (42.0-52.0); Hemoglobin 10.5 GM/DL (14.0-18.0); Immature Granulocytes Absolute 0.13 #; Lymphocytes # 0.9 10*3/uL (1.4-4.0); Lymphocytes % 7.1 % (21.2-54.2); Mean Corpuscular HGB Conc 33.2 GM/DL (32-36); Mean Corpuscular Hemoglobin 28 PG (27-34); Mean Corpuscular Volume 85.4 FL (87-102); Mean Platelet Volume 11.5 FL (9.6-12.0); Monocytes # 0.6 10*3/uL (0.11-0.8); Monocytes % 4.3 % (1.7-12.7); Neutrophils # 11.3 10*3/uL (1.4-7.4); Neutrophils % 87.2 % (38.7-73.9); Platelet Count 208 T/CUMM (130-400); Red Cell Distribution Width 13.7 % (9.3-17.3); White Blood Count 12.9 T/CUMM (4-12)
[2018-11-27 05:27] LABS: ABG Base Excess 5.2 MMOL/L (-2.5-2.5); ABG HCO3 29.1 MMOL/L (20-26); ABG Oxygen Saturation 97.4 % (95-100); ABG PCO2 42.8 MM HG (35-48); ABG PO2 93.8 MM HG (80-95); ABG TCO2 26.5 MMOL/L (23-27)
[2018-11-27 05:28] LABS: Calcium 7.4 MG/DL (8.5-10.1); Osmolality,Calculated 290.1 MOS/KG (273-304); Potassium 3.5 MMOL/L (3.5-5.1)
[2018-11-27] MEDS: POTASSIUM CHLORIDE 20 MEQ TABLET PO PRN (06:20)
[2018-11-27] MEDS: amLODIPine 5 MG TABLET PO SCH (08:04)
[2018-11-27] MEDS: PANTOPRAZOLE 40 MG VIAL IV SCH (08:04)
[2018-11-27] MEDS: NICOTINE 14 MG/24 HR PATCH TRANSDERM SCH (08:04)
[2018-11-27] MEDS: BETAMETHASONE DIPR 0.05% CREAM 15 GM TUBE TOP SCH ×2 (08:04→20:40)
[2018-11-27] MEDS: METOPROLOL TARTRATE 100 MG TABLET PO SCH ×2 (08:04→20:40)
[2018-11-27] MEDS: SODIUM CHLORIDE 0.65% NASAL SPRAY 45 ML BOTTLE BOTH NARES SCH ×4 (08:04→20:40)
[2018-11-27] MEDS ORDERED: MAGNESIUM CITRATE 300 ML BOTTLE PO ONE (09:57)
[2018-11-27] MEDS: PROPOFOL 1,000 MG/100 ML BOTTLE IV SCH ×2 (11:13→19:54)
[2018-11-27] MEDS: LEVOFLOXACIN INJ 750 MG in PREMIX 1 EACH IV SCH (11:52)
[2018-11-28] MEDS: INSULIN REGULAR 100 UNIT/ML SUBCUT SCH ×4 (01:05→19:09)
[2018-11-28] MEDS: methylPREDNISolone SOD SUC 40 MG/1 ML VIAL IV SCH ×3 (03:20→17:12)
[2018-11-28] MEDS: PROPOFOL 1,000 MG/100 ML BOTTLE IV SCH ×2 (03:26→15:16)
[2018-11-28] MEDS: fentaNYL INJ 1,250 MCG in SODIUM CHLORIDE 0.9% 225 ML IV PRN ×4 (03:27→21:08)
[2018-11-28] MEDS: DEXTROSE 5% 1,000 ML IV SCH ×2 (03:29→14:31)
[2018-11-28] MEDS: ALBUTEROL/IPRATROPIUM 3 ML NEB RESP TX SCH ×6 (03:31→23:37)
[2018-11-28] MEDS: CLINDAMYCIN INJ 600 MG in PREMIX 1 EACH IV SCH ×3 (03:31→17:12)
[2018-11-28 04:13] LABS: Allen Test Positive; Pt O2 Delivery Device Ventilator
[2018-11-28 04:15] LABS: ABG Base Excess 4.8 MMOL/L (-2.5-2.5); ABG HCO3 28.7 MMOL/L (20-26); ABG Oxygen Saturation 97.2 % (95-100); ABG PCO2 45.3 MM HG (35-48); ABG PH 7.427 (7.35-7.45); ABG PO2 95.8 MM HG (80-95); ABG TCO2 26.1 MMOL/L (23-27)
[2018-11-28 05:04] LABS: Basophils # 0.1 10*3/uL (0.0-0.2); Basophils % 0.4 % (0.0-0.8); Eosinophils # 0.1 10*3/uL (0.0-0.87); Eosinophils % 0.4 % (0.00-10.9); Hematocrit 32.9 VOL% (42.0-52.0); Hemoglobin 10.7 GM/DL (14.0-18.0); Immature Granulocytes % 1.1 %; Immature Granulocytes Absolute 0.14 #; Lymphocytes # 1.8 10*3/uL (1.4-4.0); Mean Corpuscular HGB Conc 32.5 GM/DL (32-36); Mean Corpuscular Hemoglobin 28 PG (27-34); Mean Corpuscular Volume 84.8 FL (87-102); Mean Platelet Volume 12.1 FL (9.6-12.0); Monocytes # 0.8 10*3/uL (0.11-0.8); Monocytes % 5.8 % (1.7-12.7); Neutrophils # 10.3 10*3/uL (1.4-7.4); Neutrophils % 78.3 % (38.7-73.9); Platelet Count 171 T/CUMM (130-400); Red Blood Count 3.88 MC/CUMM (3.8-5.5); Red Cell Distribution Width 13.9 % (9.3-17.3); White Blood Count 13.2 T/CUMM (4-12)
[2018-11-28 05:27] LABS: Potassium 3.4 MMOL/L (3.5-5.1)
[2018-11-28 05:41] LABS: Prealbumin 22.9 MG/DL (20-40)
[2018-11-28] MEDS: POTASSIUM CHLORIDE 20 MEQ TABLET PO PRN (06:35)
[2018-11-28] MEDS: PANTOPRAZOLE 40 MG VIAL IV SCH (09:50)
[2018-11-28] MEDS: NICOTINE 14 MG/24 HR PATCH TRANSDERM SCH (09:50)
[2018-11-28] MEDS: POTASSIUM CHLORIDE 20 MEQ/15 ML UDCUP PO PRN ×2 (09:51→12:05)
[2018-11-28] MEDS: METOPROLOL TARTRATE 100 MG TABLET PO SCH ×2 (09:51→20:25)
[2018-11-28] MEDS: amLODIPine 5 MG TABLET PO SCH (09:51)
[2018-11-28] MEDS: SODIUM CHLORIDE 0.65% NASAL SPRAY 45 ML BOTTLE BOTH NARES SCH ×4 (09:56→20:25)
[2018-11-28] MEDS: BETAMETHASONE DIPR 0.05% CREAM 15 GM TUBE TOP SCH ×2 (09:57→20:25)
[2018-11-28] MEDS: FLUCONAZOLE INJ 200 MG in PREMIX 1 EACH IV SCH (11:09)
[2018-11-28] MEDS: cloNIDine 0.1 MG TABLET PO PRN (14:55)
[2018-11-29] MEDS: CLINDAMYCIN INJ 600 MG in PREMIX 1 EACH IV SCH (01:38)
[2018-11-29] MEDS: methylPREDNISolone SOD SUC 40 MG/1 ML VIAL IV SCH ×3 (01:38→17:41)
[2018-11-29] MEDS: PROPOFOL 1,000 MG/100 ML BOTTLE IV SCH ×3 (01:40→20:00)
[2018-11-29] MEDS: DEXTROSE 5% 1,000 ML IV SCH ×3 (01:49→20:10)
[2018-11-29] MEDS: fentaNYL INJ 1,250 MCG in SODIUM CHLORIDE 0.9% 225 ML IV PRN ×5 (02:15→21:06)
[2018-11-29] MEDS: ALBUTEROL/IPRATROPIUM 3 ML NEB RESP TX SCH ×6 (03:06→23:12)
[2018-11-29 04:03] LABS: Allen Test Positive; Pt O2 Delivery Device Ventilator
[2018-11-29 04:19] LABS: ABG Base Excess 4.7 MMOL/L (-2.5-2.5); ABG HCO3 28.6 MMOL/L (20-26); ABG Oxygen Saturation 96.2 % (95-100); ABG PCO2 45.3 MM HG (35-48); ABG PH 7.425 (7.35-7.45); ABG PO2 84.6 MM HG (80-95); ABG TCO2 26.7 MMOL/L (23-27)
[2018-11-29 05:16] LABS: Basophils % 0.3 % (0.0-0.8); Eosinophils % 0.3 % (0.00-10.9); Hematocrit 32.5 VOL% (42.0-52.0); Hemoglobin 10.6 GM/DL (14.0-18.0); Immature Granulocytes % 1.4 %; Immature Granulocytes Absolute 0.16 #; Lymphocytes # 1.3 10*3/uL (1.4-4.0); Lymphocytes % 10.8 % (21.2-54.2); Mean Corpuscular HGB Conc 32.6 GM/DL (32-36); Mean Corpuscular Hemoglobin 28 PG (27-34); Mean Corpuscular Volume 85.1 FL (87-102); Mean Platelet Volume 12.7 FL (9.6-12.0); Monocytes # 0.7 10*3/uL (0.11-0.8); Monocytes % 5.8 % (1.7-12.7); Neutrophils # 9.6 10*3/uL (1.4-7.4); Neutrophils % 81.4 % (38.7-73.9); Platelet Count 100 T/CUMM (130-400); Red Blood Count 3.82 MC/CUMM (3.8-5.5); Red Cell Distribution Width 14.1 % (9.3-17.3); White Blood Count 11.7 T/CUMM (4-12)
[2018-11-29 05:26] LABS: Calcium 7.7 MG/DL (8.5-10.1); Potassium 3.8 MMOL/L (3.5-5.1)
[2018-11-29 05:38] LABS: Hypochromasia 1+
[2018-11-29] MEDS: POTASSIUM CHLORIDE 20 MEQ TABLET PO PRN (06:00)
[2018-11-29] MEDS: INSULIN REGULAR 100 UNIT/ML SUBCUT SCH ×5 (06:02→23:50)
[2018-11-29] MEDS: METOPROLOL TARTRATE 100 MG TABLET PO SCH ×2 (08:53→20:10)
[2018-11-29] MEDS: amLODIPine 5 MG TABLET PO SCH (08:53)
[2018-11-29] MEDS: PANTOPRAZOLE 40 MG VIAL IV SCH (08:53)
[2018-11-29] MEDS: NICOTINE 14 MG/24 HR PATCH TRANSDERM SCH (08:53)
[2018-11-29] MEDS: SODIUM CHLORIDE 0.65% NASAL SPRAY 45 ML BOTTLE BOTH NARES SCH ×4 (09:02→20:10)
[2018-11-29] MEDS: FLUCONAZOLE INJ 200 MG in PREMIX 1 EACH IV SCH (09:30)
[2018-11-29] MEDS: BETAMETHASONE DIPR 0.05% CREAM 15 GM TUBE TOP SCH ×2 (10:37→20:10)
[2018-11-29] MEDS: cloNIDine 0.1 MG TABLET PO PRN (15:25)
[2018-11-29] MEDS: LORazepam 1 MG TABLET PO PRN (23:15)
[2018-11-30] MEDS: fentaNYL INJ 1,250 MCG in SODIUM CHLORIDE 0.9% 225 ML IV PRN (00:33)
[2018-11-30] MEDS: methylPREDNISolone SOD SUC 40 MG/1 ML VIAL IV SCH ×3 (02:08→17:58)
[2018-11-30] MEDS: ALBUTEROL/IPRATROPIUM 3 ML NEB RESP TX SCH ×6 (02:57→23:38)
[2018-11-30 03:02] LABS: ABG Base Excess 5.8 MMOL/L (-2.5-2.5); ABG HCO3 30.1 MMOL/L (20-26); ABG Oxygen Saturation 97.8 % (95-100); ABG PCO2 42.7 MM HG (35-48); ABG PH 7.466 (7.35-7.45); ABG PO2 116.6 MM HG (80-95); ABG TCO2 31.4 MMOL/L (23-27); Allen Test Positive; Pt O2 Delivery Device Ventilator
[2018-11-30] MEDS: LORazepam 1 MG TABLET PO PRN (05:15)
[2018-11-30 05:29] LABS: Basophils # 0.1 10*3/uL (0.0-0.2); Basophils % 0.3 % (0.0-0.8); Eosinophils % 0.1 % (0.00-10.9); Hematocrit 36.5 VOL% (42.0-52.0); Hemoglobin 11.8 GM/DL (14.0-18.0); Immature Granulocytes % 2.4 %; Immature Granulocytes Absolute 0.41 #; Lymphocytes # 1.8 10*3/uL (1.4-4.0); Lymphocytes % 10.3 % (21.2-54.2); Mean Corpuscular HGB Conc 32.3 GM/DL (32-36); Mean Corpuscular Hemoglobin 28 PG (27-34); Mean Corpuscular Volume 85.5 FL (87-102); Mean Platelet Volume 11.5 FL (9.6-12.0); Monocytes # 1.1 10*3/uL (0.11-0.8); Monocytes % 6.2 % (1.7-12.7); Neutrophils % 80.7 % (38.7-73.9); Platelet Count 306 T/CUMM (130-400); Red Blood Count 4.27 MC/CUMM (3.8-5.5); Red Cell Distribution Width 14.3 % (9.3-17.3); White Blood Count 17.4 T/CUMM (4-12)
[2018-11-30 05:40] LABS: Calcium 8.4 MG/DL (8.5-10.1); Osmolality,Calculated 287.1 MOS/KG (273-304); Potassium 4.1 MMOL/L (3.5-5.1)
[2018-11-30] MEDS: INSULIN REGULAR 100 UNIT/ML SUBCUT SCH ×3 (05:47→18:00)
[2018-11-30] MEDS: DEXTROSE 5% 1,000 ML IV SCH ×3 (05:47→19:38)
[2018-11-30 07:58] LABS: ABG Base Excess 5.1 MMOL/L (-2.5-2.5); ABG HCO3 29.1 MMOL/L (20-26); ABG Oxygen Saturation 97.8 % (95-100); ABG PCO2 40.4 MM HG (35-48); ABG PH 7.468 (7.35-7.45); ABG PO2 98.5 MM HG (80-95); ABG TCO2 25.8 MMOL/L (23-27); Allen Test Positive; Pt O2 Delivery Device Ventilator
[2018-11-30] MEDS: PANTOPRAZOLE 40 MG VIAL IV SCH (08:18)
[2018-11-30] MEDS: NICOTINE 14 MG/24 HR PATCH TRANSDERM SCH (08:18)
[2018-11-30] MEDS: METOPROLOL TARTRATE 100 MG TABLET PO SCH ×2 (08:18→21:29)
[2018-11-30] MEDS: BETAMETHASONE DIPR 0.05% CREAM 15 GM TUBE TOP SCH ×2 (08:19→21:29)
[2018-11-30] MEDS: amLODIPine 5 MG TABLET PO SCH (08:19)
[2018-11-30] MEDS: SODIUM CHLORIDE 0.65% NASAL SPRAY 45 ML BOTTLE BOTH NARES SCH ×4 (08:19→21:30)
[2018-11-30] MEDS: FLUCONAZOLE INJ 200 MG in PREMIX 1 EACH IV SCH (09:38)
[2018-11-30 10:26] LABS: Allen Test Positive
[2018-11-30 10:28] LABS: ABG Base Excess 5.6 MMOL/L (-2.5-2.5); ABG HCO3 29.5 MMOL/L (20-26); ABG Oxygen Saturation 95.5 % (95-100); ABG PCO2 40.9 MM HG (35-48); ABG PO2 76.5 MM HG (80-95); ABG TCO2 26.4 MMOL/L (23-27)
[2018-11-30] MEDS: MONTELUKAST 10 MG TABLET PO SCH (10:42)
[2018-11-30] MEDS: DORNASE ALFA 2.5 MG/2.5 ML VIAL RESP TX SCH ×2 (11:04→19:25)
[2018-11-30] MEDS: PROPOFOL 1,000 MG/100 ML BOTTLE IV SCH (13:07)
[2018-11-30] MEDS: APIXABAN 2.5 MG TABLET PO SCH ×2 (17:57→21:29)
[2018-12-01] MEDS: INSULIN REGULAR 100 UNIT/ML SUBCUT SCH ×4 (00:44→17:16)
[2018-12-01] MEDS: DEXTROSE 5% 1,000 ML IV SCH ×3 (00:45→17:28)
[2018-12-01] MEDS: methylPREDNISolone SOD SUC 40 MG/1 ML VIAL IV SCH ×2 (02:31→15:01)
[2018-12-01] MEDS: LORazepam 1 MG TABLET PO PRN (02:31)
[2018-12-01] MEDS: ALBUTEROL/IPRATROPIUM 3 ML NEB RESP TX SCH ×6 (03:22→23:42)
[2018-12-01 03:46] LABS: ABG Base Excess 4.7 MMOL/L (-2.5-2.5); ABG HCO3 28.5 MMOL/L (20-26); ABG Oxygen Saturation 96.3 % (95-100); ABG PCO2 41.9 MM HG (35-48); ABG PH 7.452 (7.35-7.45); ABG PO2 87.4 MM HG (80-95); ABG TCO2 23.4 MMOL/L (23-27)
[2018-12-01 04:11] LABS: Basophils % 0.3 % (0.0-0.8); Eosinophils % 0.1 % (0.00-10.9); Hematocrit 35.4 VOL% (42.0-52.0); Hemoglobin 11.6 GM/DL (14.0-18.0); Immature Granulocytes % 1.4 %; Immature Granulocytes Absolute 0.22 #; Lymphocytes # 2.3 10*3/uL (1.4-4.0); Lymphocytes % 14.7 % (21.2-54.2); Mean Corpuscular HGB Conc 32.8 GM/DL (32-36); Mean Corpuscular Hemoglobin 28 PG (27-34); Mean Corpuscular Volume 84.9 FL (87-102); Mean Platelet Volume 11.3 FL (9.6-12.0); Monocytes # 1.1 10*3/uL (0.11-0.8); Monocytes % 6.7 % (1.7-12.7); Neutrophils # 12.1 10*3/uL (1.4-7.4); Neutrophils % 76.8 % (38.7-73.9); Platelet Count 283 T/CUMM (130-400); Red Blood Count 4.17 MC/CUMM (3.8-5.5); Red Cell Distribution Width 14.4 % (9.3-17.3); White Blood Count 15.8 T/CUMM (4-12)
[2018-12-01 04:32] LABS: Calcium 8.6 MG/DL (8.5-10.1); Osmolality,Calculated 281.4 MOS/KG (273-304)
[2018-12-01] MEDS: DORNASE ALFA 2.5 MG/2.5 ML VIAL RESP TX SCH ×2 (07:08→19:00)
[2018-12-01] MEDS: amLODIPine 10 MG TABLET PO SCH (08:20)
[2018-12-01] MEDS: NICOTINE 14 MG/24 HR PATCH TRANSDERM SCH (08:20)
[2018-12-01] MEDS: METOPROLOL TARTRATE 100 MG TABLET PO SCH ×2 (08:20→20:57)
[2018-12-01] MEDS: MONTELUKAST 10 MG TABLET PO SCH (08:20)
[2018-12-01] MEDS: APIXABAN 2.5 MG TABLET PO SCH ×2 (08:20→20:57)
[2018-12-01] MEDS: PANTOPRAZOLE 40 MG VIAL IV SCH (08:20)
[2018-12-01] MEDS: BETAMETHASONE DIPR 0.05% CREAM 15 GM TUBE TOP SCH ×2 (08:21→20:57)
[2018-12-01] MEDS: SODIUM CHLORIDE 0.65% NASAL SPRAY 45 ML BOTTLE BOTH NARES SCH ×4 (08:21→20:56)
[2018-12-01] MEDS: PANTOPRAZOLE 40 MG TABLET PO SCH (09:11)
[2018-12-01] MEDS: VALSARTAN 80 MG TABLET PO SCH (09:15)
[2018-12-01] MEDS: FLUCONAZOLE INJ 200 MG in PREMIX 1 EACH IV SCH (10:23)
[2018-12-02] MEDS: methylPREDNISolone SOD SUC 40 MG/1 ML VIAL IV SCH ×2 (01:53→14:40)
[2018-12-02] MEDS: INSULIN REGULAR 100 UNIT/ML SUBCUT SCH ×4 (01:53→17:39)
[2018-12-02] MEDS: ALBUTEROL/IPRATROPIUM 3 ML NEB RESP TX SCH ×6 (03:26→22:44)
[2018-12-02 04:48] LABS: Basophils # 0.1 10*3/uL (0.0-0.2); Basophils % 0.4 % (0.0-0.8); Eosinophils # 0.1 10*3/uL (0.0-0.87); Eosinophils % 0.4 % (0.00-10.9); Hematocrit 36.7 VOL% (42.0-52.0); Hemoglobin 12.2 GM/DL (14.0-18.0); Immature Granulocytes Absolute 0.14 #; Lymphocytes # 1.9 10*3/uL (1.4-4.0); Lymphocytes % 13.9 % (21.2-54.2); Mean Corpuscular HGB Conc 33.2 GM/DL (32-36); Mean Corpuscular Hemoglobin 28 PG (27-34); Mean Corpuscular Volume 83.6 FL (87-102); Mean Platelet Volume 11.4 FL (9.6-12.0); Monocytes # 0.7 10*3/uL (0.11-0.8); Monocytes % 5.3 % (1.7-12.7); Neutrophils # 10.7 10*3/uL (1.4-7.4); Platelet Count 299 T/CUMM (130-400); Red Blood Count 4.39 MC/CUMM (3.8-5.5); Red Cell Distribution Width 14.5 % (9.3-17.3); White Blood Count 13.5 T/CUMM (4-12)
[2018-12-02 05:02] LABS: Calcium 7.5 MG/DL (8.5-10.1); Osmolality,Calculated 286.1 MOS/KG (273-304); Potassium 3.8 MMOL/L (3.5-5.1)
[2018-12-02] MEDS: DEXTROSE 5% 1,000 ML IV SCH ×2 (07:02→21:23)
[2018-12-02] MEDS: DORNASE ALFA 2.5 MG/2.5 ML VIAL RESP TX SCH ×2 (07:21→19:25)
[2018-12-02] MEDS: amLODIPine 10 MG TABLET PO SCH (08:30)
[2018-12-02] MEDS: MONTELUKAST 10 MG TABLET PO SCH (08:30)
[2018-12-02] MEDS: METOPROLOL TARTRATE 100 MG TABLET PO SCH ×2 (08:30→21:20)
[2018-12-02] MEDS: VALSARTAN 80 MG TABLET PO SCH (08:30)
[2018-12-02] MEDS: PANTOPRAZOLE 40 MG TABLET PO SCH (08:31)
[2018-12-02] MEDS: APIXABAN 2.5 MG TABLET PO SCH ×2 (08:31→21:20)
[2018-12-02] MEDS: SODIUM CHLORIDE 0.65% NASAL SPRAY 45 ML BOTTLE BOTH NARES SCH ×4 (08:31→21:21)
[2018-12-02] MEDS: BETAMETHASONE DIPR 0.05% CREAM 15 GM TUBE TOP SCH ×2 (08:31→21:24)
[2018-12-02] MEDS: NICOTINE 14 MG/24 HR PATCH TRANSDERM SCH (08:32)
[2018-12-02] MEDS: FLUCONAZOLE INJ 200 MG in PREMIX 1 EACH IV SCH (09:58)
[2018-12-02 11:25] LABS: % Iron Saturation 17.9 % (18-50)
[2018-12-03] MEDS: INSULIN REGULAR 100 UNIT/ML SUBCUT SCH ×4 (00:06→18:12)
[2018-12-03] MEDS: methylPREDNISolone SOD SUC 40 MG/1 ML VIAL IV SCH ×2 (02:05→13:50)
[2018-12-03] MEDS: ALBUTEROL/IPRATROPIUM 3 ML NEB RESP TX SCH ×6 (02:36→23:35)
[2018-12-03] MEDS: DORNASE ALFA 2.5 MG/2.5 ML VIAL RESP TX SCH ×2 (07:49→19:53)
[2018-12-03] MEDS: amLODIPine 10 MG TABLET PO SCH (08:33)
[2018-12-03] MEDS: VALSARTAN 80 MG TABLET PO SCH (08:33)
[2018-12-03] MEDS: APIXABAN 2.5 MG TABLET PO SCH ×2 (08:33→21:22)
[2018-12-03] MEDS: NICOTINE 14 MG/24 HR PATCH TRANSDERM SCH (08:33)
[2018-12-03] MEDS: MONTELUKAST 10 MG TABLET PO SCH (08:34)
[2018-12-03] MEDS: PANTOPRAZOLE 40 MG TABLET PO SCH (08:34)
[2018-12-03] MEDS: METOPROLOL TARTRATE 100 MG TABLET PO SCH ×2 (08:34→21:22)
[2018-12-03] MEDS: BETAMETHASONE DIPR 0.05% CREAM 15 GM TUBE TOP SCH ×2 (08:36→21:23)
[2018-12-03] MEDS: SODIUM CHLORIDE 0.65% NASAL SPRAY 45 ML BOTTLE BOTH NARES SCH ×4 (08:36→21:23)
[2018-12-03] MEDS: DEXTROSE 5% 1,000 ML IV SCH ×2 (09:43→23:34)
[2018-12-03] MEDS: FLUCONAZOLE INJ 200 MG in PREMIX 1 EACH IV SCH (09:43)
[2018-12-04] MEDS: INSULIN REGULAR 100 UNIT/ML SUBCUT SCH ×4 (00:07→18:50)
[2018-12-04] MEDS: ALBUTEROL/IPRATROPIUM 3 ML NEB RESP TX SCH ×6 (02:04→23:11)
[2018-12-04] MEDS: methylPREDNISolone SOD SUC 40 MG/1 ML VIAL IV SCH ×2 (02:09→13:24)
[2018-12-04] MEDS: DORNASE ALFA 2.5 MG/2.5 ML VIAL RESP TX SCH ×2 (07:39→19:53)
[2018-12-04] MEDS: NICOTINE 14 MG/24 HR PATCH TRANSDERM SCH (08:13)
[2018-12-04] MEDS: amLODIPine 10 MG TABLET PO SCH (08:14)
[2018-12-04] MEDS: METOPROLOL TARTRATE 100 MG TABLET PO SCH ×2 (08:14→21:47)
[2018-12-04] MEDS: MONTELUKAST 10 MG TABLET PO SCH (08:14)
[2018-12-04] MEDS: PANTOPRAZOLE 40 MG TABLET PO SCH (08:14)
[2018-12-04] MEDS: APIXABAN 2.5 MG TABLET PO SCH ×2 (08:14→21:47)
[2018-12-04] MEDS: SODIUM CHLORIDE 0.65% NASAL SPRAY 45 ML BOTTLE BOTH NARES SCH ×4 (08:14→21:49)
[2018-12-04] MEDS: BETAMETHASONE DIPR 0.05% CREAM 15 GM TUBE TOP SCH ×2 (08:14→21:49)
[2018-12-04] MEDS: VALSARTAN 80 MG TABLET PO SCH (08:14)
[2018-12-04] MEDS: FLUCONAZOLE INJ 200 MG in PREMIX 1 EACH IV SCH (09:46)
[2018-12-04] MEDS ORDERED: ERGOCALCIFEROL 50,000 UNIT CAPSULE PO SCH (11:30)
[2018-12-05] MEDS: INSULIN REGULAR 100 UNIT/ML SUBCUT SCH ×4 (00:46→18:14)
[2018-12-05] MEDS: methylPREDNISolone SOD SUC 40 MG/1 ML VIAL IV SCH ×2 (02:00→13:12)
[2018-12-05] MEDS: ALBUTEROL/IPRATROPIUM 3 ML NEB RESP TX SCH ×7 (03:26→23:00)
[2018-12-05 03:41] LABS: ABG Base Excess 0.7 MMOL/L (-2.5-2.5); ABG HCO3 24.9 MMOL/L (20-26); ABG PCO2 36.3 MM HG (35-48); ABG PH 7.437 (7.35-7.45); ABG PO2 76.4 MM HG (80-95); ABG TCO2 21.7 MMOL/L (23-27); Allen Test Positive; Pt O2 Delivery Device Room Air
[2018-12-05] MEDS: APIXABAN 2.5 MG TABLET PO SCH ×2 (08:51→20:54)
[2018-12-05] MEDS: MONTELUKAST 10 MG TABLET PO SCH (08:51)
[2018-12-05] MEDS: PANTOPRAZOLE 40 MG TABLET PO SCH (08:52)
[2018-12-05] MEDS: amLODIPine 10 MG TABLET PO SCH (08:52)
[2018-12-05] MEDS: NICOTINE 14 MG/24 HR PATCH TRANSDERM SCH (08:52)
[2018-12-05] MEDS: VALSARTAN 80 MG TABLET PO SCH (08:52)
[2018-12-05] MEDS: SODIUM CHLORIDE 0.65% NASAL SPRAY 45 ML BOTTLE BOTH NARES SCH ×4 (08:55→20:55)
[2018-12-05] MEDS: BETAMETHASONE DIPR 0.05% CREAM 15 GM TUBE TOP SCH ×2 (08:56→20:56)
[2018-12-05] MEDS: METOPROLOL TARTRATE 100 MG TABLET PO SCH ×2 (09:01→20:54)
[2018-12-05] MEDS: FLUCONAZOLE INJ 200 MG in PREMIX 1 EACH IV SCH (09:53)
[2018-12-05] MEDS: FERROUS SULFATE 325 MG TABLET PO SCH ×2 (10:20→20:54)
[2018-12-05] MEDS: DORNASE ALFA 2.5 MG/2.5 ML VIAL RESP TX SCH ×2 (14:11→18:30)
[2018-12-06] MEDS: INSULIN REGULAR 100 UNIT/ML SUBCUT SCH ×4 (00:03→17:29)
[2018-12-06] MEDS: methylPREDNISolone SOD SUC 40 MG/1 ML VIAL IV SCH ×2 (02:22→13:38)
[2018-12-06] MEDS: ALBUTEROL/IPRATROPIUM 3 ML NEB RESP TX SCH ×6 (03:00→23:00)
[2018-12-06 04:43] LABS: Basophils % 0.2 % (0.0-0.8); Eosinophils % 0.2 % (0.00-10.9); Hematocrit 37.5 VOL% (42.0-52.0); Hemoglobin 12.2 GM/DL (14.0-18.0); Immature Granulocytes % 0.8 %; Immature Granulocytes Absolute 0.14 #; Lymphocytes # 2.4 10*3/uL (1.4-4.0); Lymphocytes % 14.5 % (21.2-54.2); Mean Corpuscular HGB Conc 32.5 GM/DL (32-36); Mean Corpuscular Hemoglobin 28 PG (27-34); Mean Corpuscular Volume 86.2 FL (87-102); Mean Platelet Volume 10.5 FL (9.6-12.0); Monocytes # 0.7 10*3/uL (0.11-0.8); Monocytes % 4.4 % (1.7-12.7); Neutrophils # 13.4 10*3/uL (1.4-7.4); Neutrophils % 79.9 % (38.7-73.9); Platelet Count 360 T/CUMM (130-400); Red Blood Count 4.35 MC/CUMM (3.8-5.5); Red Cell Distribution Width 15.7 % (9.3-17.3); White Blood Count 16.8 T/CUMM (4-12)
[2018-12-06 04:48] LABS: Albumin 2.8 G/DL (3.4-5.0); Bilirubin,Total 0.6 MG/DL (0.2-1.0); Calcium 8.9 MG/DL (8.5-10.1); Osmolality,Calculated 287.1 MOS/KG (273-304); Potassium 3.9 MMOL/L (3.5-5.1); Total Protein 7.3 G/DL (6.4-8.3)
[2018-12-06] MEDS: DORNASE ALFA 2.5 MG/2.5 ML VIAL RESP TX SCH ×2 (08:15→18:30)
[2018-12-06] MEDS: PANTOPRAZOLE 40 MG TABLET PO SCH (09:15)
[2018-12-06] MEDS: APIXABAN 2.5 MG TABLET PO SCH ×2 (09:16→20:28)
[2018-12-06] MEDS: METOPROLOL TARTRATE 100 MG TABLET PO SCH ×2 (09:16→22:32)
[2018-12-06] MEDS: MONTELUKAST 10 MG TABLET PO SCH (09:16)
[2018-12-06] MEDS: amLODIPine 10 MG TABLET PO SCH (09:16)
[2018-12-06] MEDS: FERROUS SULFATE 325 MG TABLET PO SCH ×2 (09:16→20:27)
[2018-12-06] MEDS: NICOTINE 14 MG/24 HR PATCH TRANSDERM SCH (09:17)
[2018-12-06] MEDS: VALSARTAN 80 MG TABLET PO SCH (09:17)
[2018-12-06] MEDS: SODIUM CHLORIDE 0.65% NASAL SPRAY 45 ML BOTTLE BOTH NARES SCH ×4 (09:19→20:28)
[2018-12-06] MEDS: BETAMETHASONE DIPR 0.05% CREAM 15 GM TUBE TOP SCH ×2 (09:21→20:33)
[2018-12-06] MEDS: POTASSIUM CHLORIDE 20 MEQ TABLET PO PRN (20:28)
[2018-12-07] MEDS: INSULIN REGULAR 100 UNIT/ML SUBCUT SCH ×3 (01:01→12:43)
[2018-12-07] MEDS: methylPREDNISolone SOD SUC 40 MG/1 ML VIAL IV SCH ×2 (02:07→14:34)
[2018-12-07] MEDS: ALBUTEROL/IPRATROPIUM 3 ML NEB RESP TX SCH ×4 (03:00→14:33)
[2018-12-07] MEDS: DORNASE ALFA 2.5 MG/2.5 ML VIAL RESP TX SCH (07:28)
[2018-12-07] MEDS: amLODIPine 10 MG TABLET PO SCH (08:50)
[2018-12-07] MEDS: MONTELUKAST 10 MG TABLET PO SCH (08:50)
[2018-12-07] MEDS: METOPROLOL TARTRATE 100 MG TABLET PO SCH (08:50)
[2018-12-07] MEDS: VALSARTAN 80 MG TABLET PO SCH (08:51)
[2018-12-07] MEDS: APIXABAN 2.5 MG TABLET PO SCH (08:51)
[2018-12-07] MEDS: FERROUS SULFATE 325 MG TABLET PO SCH (08:51)
[2018-12-07] MEDS: PANTOPRAZOLE 40 MG TABLET PO SCH (08:51)
[2018-12-07] MEDS: BETAMETHASONE DIPR 0.05% CREAM 15 GM TUBE TOP SCH (08:52)
[2018-12-07] MEDS: NICOTINE 14 MG/24 HR PATCH TRANSDERM SCH (08:52)
[2018-12-07] MEDS: SODIUM CHLORIDE 0.65% NASAL SPRAY 45 ML BOTTLE BOTH NARES SCH ×2 (08:54→12:43)
[2018-12-07 16:35] VITALS: BP 140/81
== END 2018-12-07 16:40 | DRG 304 ==
LOC: N.ED 11:29 → N.EDINP 13:25 → SUATTDRO 13:25 → N.EDINP 15:05 → N.3E 15:56 → N.CC 11-18 14:20 → N.ICU 11-26 18:27 → N.5E 12-01 17:33
PROVIDERS: ADMIT Internal Medicine; ATTEND Hospitalist